=== PATIENT | female | born 1940 | race Two or more races ===

== ENCOUNTER 2024-02-10 21:09 | Emergency (ER) | payer MEDICARE, OTHER ==
[~2024-02-10] VITALS: Ht 162.6 cm; Wt 72.6 kg
[2024-02-10 21:32] VITALS: TEMP 98.7
[2024-02-10] MEDS ORDERED: ACETAMINOPHEN ES 500 MG TABLET ONE (22:49)
[2024-02-10] MEDS: ACETAMINOPHEN ES 500 MG TABLET PO ONE (22:54)
[2024-02-11 04:58] VITALS: BP 134/86; O2SAT 98
== END 2024-02-11 04:58 ==
LOC: ER 21:23
DX: S09.8XXA Other specified injuries of head, initial encounter (principal); F03.90 Unspecified dementia, unspecified severity, without behavioral disturbance, psychotic disturbance, mood disturbance, and anxiety; I10 Essential (primary) hypertension; W01.0XXA Fall on same level from slipping, tripping and stumbling without subsequent striking against object, initial encounter; Y93.89 Activity, other specified; Y92.89 Other specified places as the place of occurrence of the external cause; Y99.8 Other external cause status
CPT/HCPCS: 70450-TC; 71045-TC; 72125-TC; 72192-TC